=== PATIENT | female | born 1945 | race Caucasian/White ===

== ENCOUNTER → 2023-12-16 11:19 | Outpatient (REF) | payer OTHER, SELFPAY | LOC: RAD 11:19 | PROVIDERS: ATTENDING PHYSICIAN Physical Medicine & Rehabilitation; FAMILY PHYSICIAN Family Medicine | DX: M54.12 Radiculopathy, cervical region (principal); M54.16 Radiculopathy, lumbar region | CPT/HCPCS: 72100 ==

== ENCOUNTER → 2024-01-02 10:09 | Outpatient (REF) | payer OTHER, SELFPAY | LOC: MRI 3T 10:09 | PROVIDERS: ATTENDING PHYSICIAN Physical Medicine & Rehabilitation; FAMILY PHYSICIAN Family Medicine | DX: M54.12 Radiculopathy, cervical region (principal) | CPT/HCPCS: 72141 ==

== ENCOUNTER 2024-01-06 14:56 | Outpatient (RCR) | payer OTHER, SELFPAY | END 2024-01-06 23:59 | disposition home or self-care (01) | LOC: RPT 14:56 | PROVIDERS: ATTENDING PHYSICIAN Orthopaedic Surgery; FAMILY PHYSICIAN Family Medicine | DX: M17.0 Bilateral primary osteoarthritis of knee (principal); M24.561 Contracture, right knee; M24.562 Contracture, left knee; Z73.6 Limitation of activities due to disability; R26.89 Other abnormalities of gait and mobility; M62.81 Muscle weakness (generalized) | CPT/HCPCS: 97110; 97112; 97116; 97140; 97162; 97530 ==

== ENCOUNTER 2024-01-13 15:00 | Outpatient (RCR) | payer OTHER, SELFPAY | END 2024-01-18 07:35 | disposition home or self-care (01) | LOC: RPT 15:00 | PROVIDERS: ATTENDING PHYSICIAN Orthopaedic Surgery; FAMILY PHYSICIAN Family Medicine | DX: M17.0 Bilateral primary osteoarthritis of knee (principal); M24.561 Contracture, right knee; M24.562 Contracture, left knee; Z73.6 Limitation of activities due to disability; R26.89 Other abnormalities of gait and mobility; M62.81 Muscle weakness (generalized) | CPT/HCPCS: 97110; 97140; 97530 ==

== ENCOUNTER 2024-01-14 10:15 | Emergency (ER) | payer OTHER, SELFPAY ==
[2024-01-14 10:27] VITALS: BP 146/74
[2024-01-14 11:28] VITALS: BMI 37.5
[2024-01-14 11:43] VITALS: BP 123/54
[2024-01-14 11:52] LABS: % Eosinophils 4.1 % (0-6); % Immature Granulocytes 0.5 % (0-0.5); % Lymphocytes 25.2 % (20.5-51.1); % Monocytes 11.1 % (1.7-9.3); % Neutrophils 58.1 % (42.2-75.2); Absolute Eosinophils 0.2 10^3/uL (0-0.7); Absolute Lymphocytes 1.1 10^3/uL (1.2-3.4); Absolute Monocytes 0.5 10^3/uL (0.1-0.6); Absolute Neutrophils 2.4 10^3/uL (1.4-6.5); Hematocrit 39.3 % (37.0-47.0); Hemoglobin 14.2 g/dL (12.0-16.0); Mean Corp Hgb Conc. 36.1 g/dL (33.0-37.0); Mean Corpuscular Hgb 31.8 pg (27.0-31.0); Mean Corpuscular Volume 87.9 fL (81.0-99.0); Mean Platelet Volume 9.2 fL (7.4-10.4); Nucleated Red Blood Cells % 0 %; Platelet Count 238 10^3/uL (130-400); Red Blood Cell Count 4.47 10^6/uL (4.20-5.40); Red Cell Dist. Width 13.4 % (11.5-14.5); White Blood Cell Count 4.2 10^3/uL (4.8-10.8)
[2024-01-14 11:55] LABS: Urine Albumin Negative (Neg - Trace); Urine Bilirubin Negative (Negative); Urine Character Clear (Clear); Urine Color Yellow; Urine Glucose Negative (Negative); Urine Ketone Negative (Negative); Urine Leukocyte 1+ (Negative); Urine Nitrite Negative (Negative); Urine Occult Blood Trace (Negative); Urine Specific Gravity 1.005 (<1.030); Urine Urobilinogen Negative (Neg - 1+)
[2024-01-14] MEDS: NSS 500 IV (11:55)
[2024-01-14 12:10] LABS: ALT (SGPT) 25 U/L (0-35); AST (SGOT) 30 U/L (14-36); Albumin 4.2 g/dl (3.5-5.0); Alkaline Phosphatase 95 U/L (38-126); Blood Urea Nitrogen 7 mg/dl (7-17); Calcium 9.2 mg/dl (8.4-10.2); Carbon Dioxide 28 mmol/L (22-30); Chloride 102 mmol/L (98-107); Estimated Creatinine Clearance 40 ml/min; Glucose 92 mg/dl (70-99); Potassium 4.7 mmol/L (3.5-5.1); Sodium 134 mmol/L (135-145); Total Bilirubin 0.7 mg/dl (0.2-1.3); Total Protein 7.1 g/dl (6.3-8.2); eGFR 57.66
[2024-01-14 12:10] LABS: COVID-19 Antigen Negative (Negative)
[2024-01-14 12:11] LABS: Urine Mucus Few
[2024-01-14 12:12] LABS: Urine Amorphous Seen; Urine Squamous Cell >30 /LPF (Few); Urine Urothelial Cell >30 /LPF (FEW)
[2024-01-14 12:13] LABS: Urine Red Blood Cell 0-2 /HPF (0-2)
[2024-01-14 12:14] LABS: Urine Bacteria Few (Negative); Urine White Cell 26-30 /HPF (0-5)
[2024-01-14 12:15] VITALS: BP 129/68
[2024-01-14 12:34] VITALS: BP 129/68
[2024-01-14 12:41] LABS: Magnesium 2.2 mg/dl (1.6-2.3)
[2024-01-14 13:32] LABS: TSH Reflex To Free T4 0.31 uIU/ml (0.47-4.68)
[2024-01-14 13:37] VITALS: BP 135/72
--- NOTE | 2024-01-14 13:44 | CM ---
CM was consulted for discharge planning. Patient has been recommended for home PT as per PT notes. CM spoke with patient and she is agreeable to [facility]. [facility] insurance sales executive updated with new referral.
CM updated bedside RN and ED physician.
[2024-01-14 14:00] VITALS: BP 128/72
[2024-01-14 14:06] LABS: Free T4 1.32 ng/dl (0.78-2.19)
--- NOTE | 2024-01-14 14:51 | ED.GENMED ---
History of Present Illness
General
Chief Complaint: Weakness
Source: patient and family
Exam Limitations: none
Time Seen by Provider: 01/14/24 11:09
Nursing documentation reviewed up to this point in time: agreed with
Travel History
Have you had any contact with someone who has COVID-19?: No
Do you have any symptoms of coronavirus? Fever > 100 degrees, chills, cough, shortness of breath, sore throat, loss of taste or smell, muscle aches, or headache?: No
History of Present Illness
History of Present Illness:
Patient presents to ED secondary to worsening tremor along with difficulty ambulating noted by her sister who lives with the patient, over the past couple days. Patient has had ongoing ambulatory just difficulty, for which she is receiving
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 In addition, tremor which has started since patient was started on Zyprexa, is continually being evaluated by her
psychiatrist as well as neurologist. As tremor allegedly started after starting Zyprexa, it is currently being weaned off and Wellbutrin is being introduced. In addition, patient has had decreased appetite and overall generalized weakness, noted
by her sister. At time of evaluation ED, patient herself has no significant complaints. Denies fever. Denies coughing. Denies chest pain. Denies shortness of breath. Denies abdominal pain. Denies vomiting or diarrhea. In addition, family is
reporting foul-smelling urine with history of UTI. Patient however does deny dysuria or urinary frequency.
Past History
Past History
ED Past Medical History: GERD, Psychiatric (Depression, previous ECT treatment) and Other (Anxiety, depression, squamous cell cancer of the face, subdural, GERD)
ED Past Surgical History: Other (Hernia surgery)
Social History
Tobacco: Non-smoker
Personal:
Living: with family
Review of Systems
Review of Systems
Allergies reviewed?: Yes
All Other Systems: ROS reviewed and negative except as documented in HPI and ROS
Constitutional: Reports no symptoms
EENT: Reports no symptoms
Respiratory: Reports no symptoms
Cardiac: Reports no symptoms
ABD/GI: Reports no symptoms
: Reports other (Foul-smelling urine)
Musculoskeletal: Reports no symptoms
Skin: Reports no symptoms
Neurological: Reports weakness and other (Tremor)
Phy Exam
Physical Exam
Physical Exam:
Physical Exam
General: no apparent distress, not acutely ill. afebrile
Head: nc/at. eomi
Neck: supple. no meningeal signs.
Heart: s1/s2 regular rate and rhythm, no murmur. equal radial pulses.
Lungs: no acute respiratory distress. clear bilaterally
Abdomen: normal bowel sounds. not tender.
Neuro: alert and oriented. no focal neurological deficits. normal speech.
Skin: no rash
Psychiatric: well kept. interactive and cooperative
Extremities: no edema. no calf tenderness.
Course
Orders/Labs/Results
Orders:
Orders
01/14/24 11:29
Electrocardiogram (*1) Urgent
Reason for Study: Fatigue / Weakness
EKG- Treatment ONCE
01/14/24 11:31
Complete Blood Count/With Diff Urgent
Comprehensive Metabolic Panel Urgent
Free T4 Urgent
Magnesium Urgent
Comment: ADD ON
TSH Reflex To Free T4 Urgent
Comment: ADD ON
01/14/24 11:32
COVID-19 Antigen Urgent
Source: Nasal Swab
Urinalysis Reflex To Culture Urgent
Date Specimen was Collected: 01/14/24
Time Specimen was Collected: 11:29
Urine Microscopic Reflex Cult Urgent
Influenza A+B Rapid Molecular Urgent
MINAL Source: Nasal Swab
Specimen Description:
Date Specimen was Collected: 01/14/24
Time Specimen was Collected: 11:29
Urine Culture Urgent
MINAL Source: U
Specimen Description:
Date Specimen was Collected: 01/14/24
Time Specimen was Collected: 11:29
01/14/24 11:47
Add On- LAB Urgent
Tests Added?: magnesium, TSH reflex free T4
01/14/24 11:48
0.9% Sodium Chloride 500 ml [Nss] 500 ml IV BOLUS
Physical Therapy Consult [Pt Eval And Treat] Urgent
Activity Level: As Tolerated
01/14/24 13:29
Case Management Consult ONCE
Case Management Consult: [facility]/Home Care
Abnormal Lab Results
01/14/24 01/14/24
11:31 11:32
WBC 4.2 L 10^3/uL
(4.8-10.8)
MCH 31.8 H pg
(27.0-31.0)
Absolute Lymphs (auto) 1.1 L 10^3/uL
(1.2-3.4)
Monocytes % 11.1 H %
(1.7-9.3)
Sodium 134 L mmol/L
(135-145)
TSH (Reflex) 0.31 L uIU/ml
(0.47-4.68)
Ur Occult Blood Reflex Trace A
(Negative)
Leukocyte Esterase Rfl 1+ A
(Negative)
Urine WBC (Reflex) 26-30 A /HPF
(0-5)
Urine Bacteria (Reflex) Few A
(Negative)
01/14/24 11:31
01/14/24 11:31
Vital Signs
Initial and Last Documented VS:
Initial Vital Signs
Temp Pulse Resp BP Pulse Ox
98.3 F 79 16 146/74 98
01/14/24 10:27 01/14/24 10:27 01/14/24 10:27 01/14/24 10:27 01/14/24 10:27
Last Documented Vital Signs
Temp Pulse Resp BP Pulse Ox
98.3 F 63 19 128/72 92
01/14/24 10:27 01/14/24 14:45 01/14/24 14:45 01/14/24 14:00 01/14/24 12:15
MDM/Problems Addressed
MDM/Problems Addressed:
Patient with an unremarkable workup in ED. Her urinalysis although likely with mixed contamination, does have nitrates with white blood cells. In light of patient's symptoms, which may be affected by UTI, along with mild dehydration, patient will
be given short course of Keflex. Urine culture pending.
Patient evaluated in ED by physical therapy who recommends home PT treatment. Patient evaluated by case management, Laura, who made arrangement for home PT evaluation/treatment.
Patient is otherwise afebrile, hemodynamically stable, and grossly neurologically intact, at time of discharge, to the care of her family.
*Critical Care Note
Total Time (30-74mins, 75-104mins- exclusive of procedures): Not Applicable
ED Attending Note
-
Portions of this chart may have been created with voice recognition software.� Occasional wrong word or��sound alike� substitutions may have occurred due to the inherent limitations of voice recognition software.
Discharge Plan
Departure
Patient Disposition: Home (Routine Discharge)
Date of Disposition: 01/14/24
Time of Disposition: 14:57
Patient with high blood pressure during this ER visit?: Yes
Discharge Problem:
Weakness
Instructions: Generalized Weakness (DC)
Prescriptions:
New
cephalexin 250 mg capsule
250 mg PO Q8H Qty: 15 0RF
No Action
trazodone 50 MG tablet
50 mg PO HS
multivitamin Tablet
1 tab PO DAILY
fluoxetine 40 mg Capsule
40 mg PO DAILY
olanzapine 10 mg Tablet
10 mg PO HS
cyanocobalamin (vitamin B-12) 500 mcg Tablet
500 mcg PO DAILY
mirtazapine 30 mg Tablet
30 mg PO HS
red yeast rice 600 mg Capsule
600 mg PO BID
Referrals:
Last Lemon DO [Family Provider] -
Activity Restrictions/Additional Instructions:
As discussed, please continue to follow-up with your primary care physician and psychiatrist for further evaluation and treatment. Your prescription has been sent electronically to [facility] pharmacy in [place].
Interventions
Interventions:
*Risk Screen - Suicide Last Done: 01/14/24 11:36
*General Assessment Last Done: 01/14/24 11:36
*Neglect/Abuse Screening Last Done: 01/14/24 11:36
ED- Fall Risk Assessment Last Done: 01/14/24 11:36
*ED COVID-19 Vaccine History Last Done: 01/14/24 11:36
*Nursing Disposition Last Done: 01/14/24 15:21
ED- Cardiac Assessment Last Done: 01/14/24 12:15
ED- Neurological Assessment Last Done: 01/14/24 11:37
ED- Pulmonary Assessment Last Done: 01/14/24 11:37
Discharge Date and Time
Discharge Date/Time: 01/14/24 15:21
--- NOTE | 2024-01-14 16:13 | VNURNOTE ---
Home Health Liaison spoke with patient's sister Celina by phone at 1615 to discuss [facility] therapy, visits, schedule and homebound status. Celina is agreeable and understands that visits at home will be 2-3 x per week to assess and teach balance
and strengthening exercises.
Celina is aware that [facility] will contact them for start of care in 1-2 days after discharge from .
[facility] referral completed in [facility].
== END 2024-01-14 15:21 | disposition home or self-care (01) ==
LOC: EMR 10:15
PROVIDERS: EMERGENCY PHYSICIAN Emergency Medicine; FAMILY PHYSICIAN Family Medicine
DX: R53.1 Weakness (principal); K21.9 Gastro-esophageal reflux disease without esophagitis; F41.9 Anxiety disorder, unspecified; F32.A Depression, unspecified; Z87.440 Personal history of urinary (tract) infections
CPT/HCPCS: 99283; 80053; 81003; 81015; 83735; 84439; 84443; 85025; 87086; 87502; 87811; 93005

== ENCOUNTER → 2024-02-05 07:17 | Outpatient (REF) | payer OTHER, SELFPAY | LOC: MRI 07:17 | PROVIDERS: ATTENDING PHYSICIAN Family Medicine | DX: R26.9 Unspecified abnormalities of gait and mobility (principal) | CPT/HCPCS: 70551 ==

== ENCOUNTER → 2024-02-23 16:59 | Outpatient (REF) | payer OTHER, SELFPAY | LOC: RAD 16:59 | PROVIDERS: ATTENDING PHYSICIAN Family Medicine | DX: N39.0 Urinary tract infection, site not specified (principal) | CPT/HCPCS: 76770 ==

== ENCOUNTER 2024-03-07 13:31 | Outpatient (RCR) | payer OTHER, SELFPAY | END 2024-03-07 23:59 | disposition home or self-care (01) | LOC: RPT 13:31 | PROVIDERS: ATTENDING PHYSICIAN Physician Assistant Medical; FAMILY PHYSICIAN Family Medicine | DX: M17.0 Bilateral primary osteoarthritis of knee (principal); M24.561 Contracture, right knee; M24.562 Contracture, left knee; Z73.6 Limitation of activities due to disability; R26.89 Other abnormalities of gait and mobility; G25.0 Essential tremor | CPT/HCPCS: 97110; 97116; 97140; 97162; 97167; 97530 ==

== ENCOUNTER 2024-03-30 14:39 | Outpatient (RCR) | payer OTHER, SELFPAY | END 2024-03-30 23:59 | disposition home or self-care (01) | LOC: RPT 14:39 | PROVIDERS: ATTENDING PHYSICIAN Physician Assistant Medical; FAMILY PHYSICIAN Family Medicine | DX: M24.561 Contracture, right knee (principal); M17.0 Bilateral primary osteoarthritis of knee; M24.562 Contracture, left knee; G25.0 Essential tremor; Z73.6 Limitation of activities due to disability | CPT/HCPCS: 97110; 97112; 97116; 97530; 97535 ==

== ENCOUNTER 2024-04-10 13:26 | Outpatient (RCR) | payer OTHER, SELFPAY | END 2024-04-10 15:27 | disposition home or self-care (01) | LOC: RPT 13:26 | PROVIDERS: ATTENDING PHYSICIAN Physician Assistant Medical; FAMILY PHYSICIAN Family Medicine | DX: M17.0 Bilateral primary osteoarthritis of knee (principal); M24.561 Contracture, right knee; M24.562 Contracture, left knee; Z73.6 Limitation of activities due to disability | CPT/HCPCS: 97110; 97112 ==

== ENCOUNTER 2024-05-09 20:02 | Emergency (ER) | payer OTHER, SELFPAY ==
[2024-05-09 20:03] VITALS: BP 167/88
[2024-05-09 21:56] VITALS: BP 139/70
[2024-05-09 22:00] VITALS: BP 142/67
--- NOTE | 2024-05-09 22:12 | ED.GENMED ---
History of Present Illness
<DANA Carrillo - Last Filed: 05/10/24 03:25>
General
Chief Complaint: Nose Bleed
Source: patient and family
Exam Limitations: none
Time Seen by Provider: 05/09/24 22:07
Nursing documentation reviewed up to this point in time: agreed with
History of Present Illness
History of Present Illness:
78 year old female presents for evaluation of right-sided epistaxis. Pt states she was sitting on her couch watching television when the bleeding began. The bleeding began spontaneously and lasted for approximately 10 minutes. Direct pressure was
applied for 20-30 minutes which resolved the bleeding, per family member. Pt endorses recent cough and congestion over the last 2 weeks. She has not taken any new medications for her sx. She states that this is the first episode of epistaxis she has
experienced. She denies , N/V, trauma to the nose, foreign body, CP, and SOB. Of note, pt reports that her dose of trazodone was recently increased to 150 mg in March of 2024.
Past History
<DANA Carrillo - Last Filed: 05/10/24 03:25>
Past History
ED Past Medical History: GERD, Psychiatric (Depression, previous ECT treatment) and Other (Anxiety, depression, squamous cell cancer of the face, subdural, GERD)
ED Past Surgical History: Other (Hernia surgery)
Social History
Tobacco: Non-smoker
Personal:
Living: with family
Review of Systems
<DANA Carrillo - Last Filed: 05/10/24 03:25>
Review of Systems
Allergies reviewed?: Yes
Other source history: family
Constitutional: Reports no symptoms
EENT: Reports other (nose bleed R nare, congestion )
Respiratory: Reports cough
Cardiac: Reports no symptoms
ABD/GI: Reports no symptoms
Skin: Reports no symptoms
Neurological: Reports no symptoms
Hematologic/Lymphatic: Reports bleeding
Phy Exam
<DANA Carrillo - Last Filed: 05/10/24 03:25>
General Physical Exam
General Presentation: well appearing
General Skin: warm
General Habitus: normal
General Mental: alert
General Hydration: appears well hydrated
ENT Exam
Additional ENT: Dried blood in R nare. No septal hematoma.
Cardiovascular Exam
Cardiovascular Exam: regular rate/rhythm and no murmur
Pulmonary Exam
Pulmonary Exam: lungs clear and no respiratory distress
Neurological Exam
Neurological Exam: alert and oriented x3
Course
<DANA Carrillo - Last Filed: 05/10/24 03:25>
Vital Signs
Initial and Last Documented VS:
Initial Vital Signs
Temp Pulse Resp BP Pulse Ox
97.9 F 66 17 167/88 94
05/09/24 20:03 05/09/24 20:03 05/09/24 20:03 05/09/24 20:03 05/09/24 20:03
Last Documented Vital Signs
Temp Pulse Resp BP Pulse Ox
97.9 F 60 16 135/70 94
05/09/24 20:03 05/09/24 23:28 05/09/24 23:28 05/09/24 23:00 05/09/24 23:21
<Colin Moeller DO - Last Filed: 05/09/24 23:12>
Vital Signs
Initial and Last Documented VS:
Initial Vital Signs
Temp Pulse Resp BP Pulse Ox
97.9 F 66 17 167/88 94
05/09/24 20:03 05/09/24 20:03 05/09/24 20:03 05/09/24 20:03 05/09/24 20:03
Last Documented Vital Signs
Temp Pulse Resp BP Pulse Ox
97.9 F 60 16 135/70 94
05/09/24 20:03 05/09/24 23:28 05/09/24 23:28 05/09/24 23:00 05/09/24 23:21
<DANA Carrillo - Last Filed: 05/10/24 03:25>
MDM/Problems Addressed
Differential Diagnosis Includes:
epistaxis
<Colin Moeller DO - Last Filed: 05/09/24 23:12>
*Critical Care Note
Total Time (30-74mins, 75-104mins- exclusive of procedures): Not Applicable
<Colin Moeller DO - Last Filed: 05/09/24 23:12>
Patient Management
Social determinants of health affecting care: Strong social support
ED Attending Note
<DANA Carrillo - Last Filed: 05/10/24 03:25>
-
Portions of this chart may have been created with voice recognition software.� Occasional wrong word or��sound alike� substitutions may have occurred due to the inherent limitations of voice recognition software.
<Colin Moeller DO - Last Filed: 05/09/24 23:12>
ED Attending Note
Patient seen and examined by attending physician: Yes
I performed the substantive portion of visit, reviewed & personally made and approve the management plan that is documented in note by myself or CECY.: Yes
ED Attending Note:
Pleasant 78-year-old female with spontaneous right nare nosebleed. Bleeding started spontaneously and lasted approximately 10 minutes. Stopped on its own. 911 was called and patient transported to the hospital uneventfully. Patient states that
the nosebleed did not start again. Patient not on any blood thinners. Denies any trauma. Daughters are present at the bedside who have their mom on video surveillance. They reviewed the tapes and did not see anything other than a spontaneous
nosebleed. Patient denies head injury. Patient was seen in conjunction with the PA student. I have reviewed and agree with the history and treatment plan presented. On my independent physical exam, patient is awake, alert, and oriented x3, no
acute distress. There are some dried blood and a small dried clot in the right nare. Patient agreed to chemical cautery. I did cauterize a small clot. Patient tolerated procedure well with no immediate adverse effects. Patient was given a nasal
clamp. Patient to be discharged home.
Discharge Plan
Departure
Patient Disposition: Home (Routine Discharge)
Date of Disposition: 05/09/24
Time of Disposition: 23:10
Patient with high blood pressure during this ER visit?: Yes
Condition: Good
Discharge Problem:
Acute anterior epistaxis
Instructions: Nosebleeds (DC), BLOOD PRESSURE
Prescriptions:
No Action
trazodone 50 MG tablet
50 mg PO HS
multivitamin Tablet
1 tab PO DAILY
fluoxetine 40 mg Capsule
40 mg PO DAILY
olanzapine 10 mg Tablet
10 mg PO HS
cyanocobalamin (vitamin B-12) 500 mcg Tablet
500 mcg PO DAILY
mirtazapine 30 mg Tablet
30 mg PO HS
red yeast rice 600 mg Capsule
600 mg PO BID
cephalexin 250 mg capsule
250 mg PO Q8H Qty: 15 0RF
Referrals:
Last Lemon, [Family Provider] -
Igor Rodney MD [Active] -
Activity Restrictions/Additional Instructions:
Should bleeding recur, please apply the clamp provided. Sleep with the head of the bed elevated at 30 degrees.
It was a pleasure meeting you and taking part in your care. We hope for your continued healing and wellness.
Please read discharge instructions in their entirety. However, they are for general education and may not describe your exact diagnosis at discharge. Information on your ER visit and medical conditions were discussed with you along with appropriate
follow up information...
If indicated, please take your medications as instructed and indicated on discharge paperwork.
Please schedule a follow up appointment as directed. Call to schedule an appointment
Please return to the emergency department with ANY change in, persisting, or worsening of symptoms. If any of your symptoms do not improve, or persist, or become more severe within 6-12 hours, please return to the emergency department for further
care.
Please return to the emergency department if you develop a headache, neck pain/stiffness, fever greater than 100.4F, chest pain, shortness of breath, persistent nausea, vomiting, slurred speech, difficulty walking, numbness/tingling, weakness, signs
of infection or any other symptoms that are worrisome to you.
If you have any questions or concerns please do not hesitate to call the Hospital at or E-mail me directly at [email or web address]
Interventions
Interventions:
*Risk Screen - Suicide Last Done: 05/09/24 20:03
*General Assessment Last Done: 05/09/24 20:03
*Neglect/Abuse Screening Last Done: 05/09/24 20:03
ED- Fall Risk Assessment Last Done: 05/09/24 22:31
*ED COVID-19 Vaccine History Last Done: 05/09/24 22:31
*Nursing Disposition Last Done: 05/09/24 23:29
ED-EENT Assessment Last Done: 05/09/24 22:31
Discharge Date and Time
Discharge Date/Time: 05/09/24 23:29
Print Language: [id number]
[2024-05-09 23:00] VITALS: BP 135/70
== END 2024-05-09 23:29 | disposition home or self-care (01) ==
LOC: EMR 20:02
PROVIDERS: EMERGENCY PHYSICIAN Student in an Organized Health Care Education/Training Program; FAMILY PHYSICIAN Family Medicine
DX: R04.0 Epistaxis (principal); R05.9 Cough, unspecified; R03.0 Elevated blood-pressure reading, without diagnosis of hypertension; F32.A Depression, unspecified; F41.9 Anxiety disorder, unspecified; K21.9 Gastro-esophageal reflux disease without esophagitis; E78.5 Hyperlipidemia, unspecified; Z85.828 Personal history of other malignant neoplasm of skin
CPT/HCPCS: 99283; 30901

== ENCOUNTER 2024-06-08 06:37 | Day surgery (SDC) | payer OTHER, SELFPAY ==
--- NOTE | 2024-06-06 09:09 | PTCARENOTE ---
Abn ECG, Dr. Crespo notified 'Ok if stable' no requests made.
[2024-06-08] VITALS (9 sets, daily range): BP systolic 96–126; BP diastolic 51–67; BMI 35.8
[2024-06-08] MEDS: CYSVIEW KIT 100 MG INTRAVES (13:52)
[2024-06-08] MEDS: NORMOSOL-R/PLASMALYTE-A 1000 IV (14:20)
[2024-06-08] MEDS: Pyridium 200 MG PO (15:52)
[2024-06-08] MEDS: DETROL LA 4 MG PO (15:52)
== END 2024-06-08 17:45 | disposition home or self-care (01) ==
LOC: SDS 06:37
PROVIDERS: ATTENDING PHYSICIAN Surgery
DX: D30.3 Benign neoplasm of bladder (principal)
CPT/HCPCS: 52204; C9738; 88307

== ENCOUNTER 2024-08-04 14:42 | Outpatient (RCR) | payer OTHER, SELFPAY | END 2024-08-04 23:59 | disposition home or self-care (01) | LOC: ROT 14:42 | PROVIDERS: ATTENDING PHYSICIAN Nurse Practitioner; FAMILY PHYSICIAN Family Medicine | DX: G20.C Parkinsonism, unspecified (principal); Z73.6 Limitation of activities due to disability | CPT/HCPCS: 97110; 97112; 97163; 97167; 97530 ==

== ENCOUNTER 2024-09-04 11:04 | Outpatient (RCR) | payer OTHER, SELFPAY | END 2024-09-04 23:59 | disposition home or self-care (01) | LOC: ROT 11:04 | PROVIDERS: ATTENDING PHYSICIAN Nurse Practitioner; FAMILY PHYSICIAN Family Medicine | DX: G20.C Parkinsonism, unspecified (principal); Z73.6 Limitation of activities due to disability | CPT/HCPCS: 97110; 97112; 97530 ==

== ENCOUNTER 2024-09-22 10:17 | Outpatient (RCR) | payer OTHER, SELFPAY | END 2024-09-22 23:59 | disposition home or self-care (01) | LOC: ROT 10:17 | PROVIDERS: ATTENDING PHYSICIAN Nurse Practitioner; FAMILY PHYSICIAN Family Medicine | DX: G20.C Parkinsonism, unspecified (principal); Z73.6 Limitation of activities due to disability | CPT/HCPCS: 97110; 97112; 97116; 97530 ==

== ENCOUNTER 2025-02-05 13:07 | Outpatient (RCR) | payer OTHER, SELFPAY | END 2025-02-05 23:59 | disposition home or self-care (01) | LOC: RPT 13:07 | PROVIDERS: ATTENDING PHYSICIAN Physician Assistant; FAMILY PHYSICIAN Family Medicine | DX: M25.561 Pain in right knee (principal); M25.562 Pain in left knee; M17.0 Bilateral primary osteoarthritis of knee; Z73.6 Limitation of activities due to disability; M62.81 Muscle weakness (generalized); R26.89 Other abnormalities of gait and mobility | CPT/HCPCS: 97110; 97162; 97530 ==

== ENCOUNTER 2025-02-16 14:12 | Outpatient (RCR) | payer OTHER, SELFPAY | END 2025-02-19 07:36 | disposition home or self-care (01) | LOC: RPT 14:12 | PROVIDERS: ATTENDING PHYSICIAN Physician Assistant; FAMILY PHYSICIAN Family Medicine | DX: M25.562 Pain in left knee; M25.561 Pain in right knee; M17.0 Bilateral primary osteoarthritis of knee; Z73.6 Limitation of activities due to disability; M62.81 Muscle weakness (generalized); R26.89 Other abnormalities of gait and mobility | CPT/HCPCS: 97110 ==

== ENCOUNTER → 2025-03-13 06:57 | Outpatient (REF) | payer OTHER, SELFPAY | LOC: RAD 06:57 | PROVIDERS: ATTENDING PHYSICIAN Nurse Practitioner Family; FAMILY PHYSICIAN Family Medicine | DX: R60.0 Localized edema (principal) | CPT/HCPCS: 93970 ==

== ENCOUNTER → 2025-03-15 12:51 | Outpatient (REF) | payer OTHER, SELFPAY | LOC: HWRCS 12:51 | PROVIDERS: ATTENDING PHYSICIAN Family Medicine | DX: M79.89 Other specified soft tissue disorders (principal) | CPT/HCPCS: 93306 ==

== ENCOUNTER 2025-04-05 05:52 | Outpatient (RCR) | payer OTHER, SELFPAY | END 2025-04-05 23:59 | disposition home or self-care (01) | LOC: RPT 05:52 | PROVIDERS: ATTENDING PHYSICIAN Family Medicine | DX: R53.81 Other malaise (principal); R26.89 Other abnormalities of gait and mobility; Z73.6 Limitation of activities due to disability | CPT/HCPCS: 97162 ==

== ENCOUNTER 2025-04-19 11:59 | Outpatient (RCR) | payer OTHER, SELFPAY | END 2025-04-19 23:59 | disposition home or self-care (01) | LOC: RPT 11:59 | PROVIDERS: ATTENDING PHYSICIAN Family Medicine | DX: R53.81 Other malaise (principal); R26.89 Other abnormalities of gait and mobility; Z73.6 Limitation of activities due to disability | CPT/HCPCS: 97110; 97112 ==

== ENCOUNTER 2025-04-28 12:06 | Emergency (ER) | payer OTHER, SELFPAY ==
[2025-04-28 12:19] VITALS: BP 133/82
[2025-04-28 12:46] VITALS: BMI 36.5
[2025-04-28 12:57] LABS: % Basophils 0.6 % (0-2); % Eosinophils 3.6 % (0-6); % Immature Granulocytes 0.3 % (0-0.5); % Lymphocytes 26.1 % (20.5-51.1); % Monocytes 7.4 % (1.7-9.3); Absolute Eosinophils 0.2 10^3/uL (0-0.7); Absolute Lymphocytes 1.7 10^3/uL (1.2-3.4); Absolute Monocytes 0.5 10^3/uL (0.1-0.6); Absolute Neutrophils 3.9 10^3/uL (1.4-6.5); Hematocrit 37.9 % (37.0-47.0); Hemoglobin 13.3 g/dL (12.0-16.0); Mean Corp Hgb Conc. 35.1 g/dL (33.0-37.0); Mean Corpuscular Volume 88.3 fL (81.0-99.0); Mean Platelet Volume 8.8 fL (7.4-10.4); Nucleated Red Blood Cells % 0 %; Platelet Count 216 10^3/uL (130-400); Red Blood Cell Count 4.29 10^6/uL (4.20-5.40); Red Cell Dist. Width 12.6 % (11.5-14.5); White Blood Cell Count 6.3 10^3/uL (4.8-10.8)
[2025-04-28] MEDS: TESSALON PERLES 100 MG PO (13:04)
[2025-04-28] MEDS: VENTOLIN NEBULES 2.5 MG INH (13:04)
[2025-04-28 13:18] LABS: ALT (SGPT) 17 U/L (0-35); AST (SGOT) 22 U/L (14-36); Albumin 4.1 g/dl (3.5-5.0); Alkaline Phosphatase 75 U/L (38-126); Blood Urea Nitrogen 11 mg/dl (7-17); Calcium 8.9 mg/dl (8.4-10.2); Carbon Dioxide 29 mmol/L (22-30); Chloride 102 mmol/L (98-107); Estimated Creatinine Clearance 48 ml/min; Glucose 105 mg/dl (70-99); Sodium 136 mmol/L (135-145); Total Bilirubin 0.5 mg/dl (0.2-1.3); Total Protein 6.9 g/dl (6.3-8.2); eGFR > 60.00
--- NOTE | 2025-04-28 14:49 | ED.GENMED ---
History of Present Illness
General
Chief Complaint: Breathing Problem
Source: patient
Exam Limitations: none
Time Seen by Provider: 04/28/25 12:38
Nursing documentation reviewed up to this point in time: agreed with
History of Present Illness
History of Present Illness:
Patient who recently completed course of Augmentin and prednisone for possible sinusitis, presents to ED secondary to persistent nasal congestion along with fullness sensation, as well as intermittent cough. Denies fever. Denies headache. Denies
neck pain. Denies chest pain. Denies vomiting or diarrhea. Denies loss of appetite. Denies inability to sleep. Denies leg pain or swelling. Denies recent travel or surgery. Denies back pain. Denies sick contact.
Past History
Past History
ED Past Medical History: GERD, Psychiatric (Depression, previous ECT treatment) and Other (Anxiety, depression, squamous cell cancer of the face, subdural, GERD)
ED Past Surgical History: Other (Hernia surgery)
Social History
Tobacco: Non-smoker
Personal:
Living: with family
Review of Systems
Review of Systems
Allergies reviewed?: Yes
All Other Systems: ROS reviewed and negative except as documented in HPI and ROS
Constitutional: Reports no symptoms
EENT: Reports other (Nasal congestion)
Respiratory: Reports cough
Cardiac: Reports no symptoms
ABD/GI: Reports no symptoms; Denies vomiting or diarrhea
Musculoskeletal: Reports no symptoms
Skin: Reports no symptoms
Neurological: Reports no symptoms; Denies dizzy, headache or weakness
Phy Exam
Physical Exam
Physical Exam:
Physical Exam
General: no apparent distress, not acutely ill. afebrile
Head: nc/at. eomi
Neck: supple. no meningeal signs.
Heart: s1/s2 regular rate and rhythm
Lungs: no acute respiratory distress. clear bilaterally
Abdomen: normal bowel sounds. not tender.
Neuro: alert and oriented x 3. no focal neurological deficits
Skin: no rash
Psychiatric: well kept. interactive and cooperative
Extremities: no edema. no calf tenderness.
Scores
Heart Failure Risk
Heart Failure Risk Score: Not Applicable
Course
Orders/Labs/Results
Orders:
Orders
04/28/25 12:44
CBC/With Diff [Complete Blood Count/With Diff] Urgent
CMP [Comprehensive Metabolic Panel] Urgent
04/28/25 12:53
Albuterol Nebs [Ventolin Nebules] 2.5 mg INH R NOW STA
Benzonatate [Tessalon Perles] 100 mg PO NOW STA
CR Chest - 2 Views Urgent
Comment:
Reason For Exam: cough/sob
Abnormal Lab Results
04/28/25
12:44
Glucose 105 H mg/dl
(70-99)
04/28/25 12:44
04/28/25 12:44
Vital Signs
Initial and Last Documented VS:
Initial Vital Signs
Temp Pulse Resp BP Pulse Ox
97.6 F 81 24 133/82 99
04/28/25 12:19 04/28/25 12:19 04/28/25 12:19 04/28/25 12:19 04/28/25 12:19
Last Documented Vital Signs
Temp Pulse Resp BP Pulse Ox
97.6 F 64 14 133/82 95
04/28/25 12:19 04/28/25 13:30 04/28/25 13:30 04/28/25 12:19 04/28/25 14:49
MDM/Problems Addressed
MDM/Problems Addressed:
Patient with unremarkable workup in ED, including blood work and chest x-ray. Patient otherwise remains afebrile, hemodynamically stable, and nontoxic-appearing, during observation. Patient is able to ambulate prior to discharge, independently,
with steady gait, without any acute respiratory distress. Patient denies any acute respiratory distress, but feels uncomfortable with continual nasal congestion/fullness sensation. As such, with patient having completed course of Augmentin and
prednisone, do not feel that patient would benefit from additional antibiotics at this point. Patient and daughter agree. Patient will be advised to continue symptomatic treatment at home, via saline flushes, Nasacort, but will prescribe
antitussive medication, i.e. Tessalon Perle, to be used as needed. In addition, contacted on-call physician, Dr. Henson, covering for primary care physician, and recommended that patient to be seen as an outpatient as a follow-up. Patient and
daughter feel comfortable with discussed treatment plan. Will return to ED with worsening symptoms.
*Pulse Oximetry
SaO2: 95
Oxygen Mode of Delivery: Room air
Patient hypoxic: no
*Critical Care Note
Total Time (30-74mins, 75-104mins- exclusive of procedures): Not Applicable
ED Attending Note
-
Portions of this chart may have been created with voice recognition software.� Occasional wrong word or��sound alike� substitutions may have occurred due to the inherent limitations of voice recognition software.
Discharge Plan
Departure
Patient Disposition: Home (Routine Discharge)
Date of Disposition: 04/28/25
Time of Disposition: 14:49
Patient with high blood pressure during this ER visit?: Yes
Condition: Good
Discharge Problem:
Viral illness
Instructions: Sinusitis in adults - ED discharge instructions
Prescriptions:
New
benzonatate 100 mg capsule
100 mg PO TID PRN (Reason: Cough) Qty: 20 0RF
No Action
trazodone 50 MG tablet
150 mg PO HS
multivitamin Tablet
1 tab PO DAILY
fluoxetine 40 mg Capsule
80 mg PO DAILY
cyanocobalamin (vitamin B-12) 500 mcg Tablet
500 mcg PO DAILY
red yeast rice 600 mg Capsule
600 mg PO BID
estradiol 0.01 % (0.1 mg/gram) Cream
1 appful VAGINAL DAILY
cranberry 500 mg Capsule
500 mg PO DAILY
multivitamin with iron [Hair Vitamins] Tablet
1 tab PO DAILY
cholecalciferol (vitamin D3) [Vitamin D3] 25 mcg (1,000 unit) Tablet
25 mcg PO DAILY
omeprazole 20 mg Tablet,Delayed Release (Dr/Ec)
20 mg PO Q48H
flaxseed-omega3,6,9-fatty acid 1,200-540-132 mg Capsule
1 cap PO DAILY
Probiotic 10 billion cell Capsule
10,000 mmu cells PO DAILY
Ca-D3-mag [id number] [Calcium 600-D3 Plus (mag-zinc)] 600 mg calcium- 20 mcg-50 mg Tablet
1 tab PO DAILY
Referrals:
Last Lemon DO [Family Provider, Family Practice]
Activity Restrictions/Additional Instructions:
As discussed, please follow-up with your primary care physician for reevaluation, or consider return to ED with worsening symptoms.
Interventions
Interventions:
*Risk Screen - Suicide Last Done: 04/28/25 12:19
*General Assessment Last Done: 04/28/25 12:19
*Neglect/Abuse Screening Last Done: 04/28/25 12:19
*Nursing Disposition Last Done: 04/28/25 15:12
ED- Cardiac Assessment Last Done: 04/28/25 12:56
ED- Pulmonary Assessment Last Done: 04/28/25 12:56
Discharge Date and Time
Discharge Date/Time: 04/28/25 15:12
Print Language: VINCENTIAN
== END 2025-04-28 15:12 | disposition home or self-care (01) ==
LOC: EMR 12:06
PROVIDERS: EMERGENCY PHYSICIAN Emergency Medicine; FAMILY PHYSICIAN Family Medicine
DX: B34.9 Viral infection, unspecified (principal); R09.81 Nasal congestion
CPT/HCPCS: 99284; 94640; 71046; 80053; 85025

== ENCOUNTER 2025-06-06 12:08 | Outpatient (RCR) | payer OTHER, SELFPAY | END 2025-06-06 23:59 | disposition home or self-care (01) | LOC: RPT 12:08 | PROVIDERS: ATTENDING PHYSICIAN Family Medicine | DX: R26.89 Other abnormalities of gait and mobility; R53.81 Other malaise; Z73.6 Limitation of activities due to disability | CPT/HCPCS: 97110 ==

== ENCOUNTER 2025-07-04 11:00 | Outpatient (RCR) | payer OTHER, SELFPAY | END 2025-07-04 23:59 | disposition home or self-care (01) | LOC: RPT 11:00 | PROVIDERS: ATTENDING PHYSICIAN Family Medicine | DX: R53.81 Other malaise (principal); R26.89 Other abnormalities of gait and mobility; Z73.6 Limitation of activities due to disability; M62.81 Muscle weakness (generalized) | CPT/HCPCS: 97110 ==

== ENCOUNTER 2025-07-20 14:09 | Outpatient (RCR) | payer OTHER, SELFPAY | END 2025-07-26 12:22 | disposition home or self-care (01) | LOC: RPT 14:09 | PROVIDERS: ATTENDING PHYSICIAN Family Medicine | DX: R53.81 Other malaise (principal); R26.89 Other abnormalities of gait and mobility; Z73.6 Limitation of activities due to disability; M62.81 Muscle weakness (generalized) | CPT/HCPCS: 97110; 97112; 97530 ==

== ENCOUNTER → 2025-07-27 10:10 | Outpatient (REF) | payer OTHER, SELFPAY | LOC: HWRAD 10:10 | PROVIDERS: ATTENDING PHYSICIAN Family Medicine | DX: J30.2 Other seasonal allergic rhinitis (principal); R05.3 Chronic cough | CPT/HCPCS: 70486; 71250 ==